=== PATIENT | female | born 1995 | race African-American/Black ===

== ENCOUNTER → 2017-01-07 | Outpatient (CLI) | payer OTHER ==
--- NOTE | 2017-01-09 06:21 | SLEEPCENT ---
DATE OF PROCEDURE: 01/07/2017 ORDERED BY: JAMISON Liu Nocturnal polysomnography was performed for evaluation of sleep apnea syndrome symptoms in this patient with complaints of difficulty at sleep onset and sleep maintenance. 7 hours and 32 minutes of data were reviewed. There were 282 minutes of sleep identified. Sleep latency was quite delayed at 145 minutes. Rapid eye movement (REM) was mildly delayed at 132 minutes. Sleep architecture once established was fair with some fragmentation particularly early in the study, but 3 REM periods were appreciated. Overall sleep efficiency was reduced at 63.3%. The patient's EKG showed a sinus rhythm with an average heart rate of 66 beats per minute. EEG showed normal waveforms for awake and sleep. There were no respiratory events of 10 seconds in duration or greater resulting in arousal. Snoring was noted of some significance, particularly early in the study and respiratory related arousals occurred 4.7 times per hour. There was some scattered limb activity noted. Limb movement arousals were few at 1.5 per hour. Oxygen saturations were normal. IMPRESSION: 1. Normal nocturnal polysomnography with snoring. 2. Possible delayed sleep phase syndrome. RECOMMENDATION: Interventions to optimize upper airway tone may address the snoring problem. Attention to sleep hygiene may be needed to address the issue of delayed sleep phase.
== END ==
LOC: M SLEEP 20:03
PROVIDERS: ATTEND Nurse Practitioner Adult Health
DX: G47.30 Sleep apnea, unspecified (principal)

== ENCOUNTER 2017-03-13 06:33 | Emergency (ER) | payer OTHER ==
[~2017-03-13] VITALS: Ht 160 cm; Wt 64.9 kg
[2017-03-13] MEDS ORDERED: [UNRECOGNIZED DRUG - CODE] (06:46)
[2017-03-13] MEDS ORDERED: ALBU83IN INH ×2 (06:47→08:29)
[2017-03-13] MEDS ORDERED: PRENCHW PO (06:47)
[2017-03-13] MEDS ORDERED: IPRATROPIUM 0.5MG/ALBUTEROL 2.5MG INH SOL UD 3ML (DUONEB)(J7620) NEB ONE (07:00)
[2017-03-13 07:28] LABS: BASO % 0.1 % (0.0-1.0); EOS # 0.3 K/mm3 (0.0-0.50); EOS % 1.7 % (0.0-3.0); LARGE UNSTAINED CELL # 0.2 K/mm3 (0.0-0.4); LARGE UNSTAINED CELL % 0.9 % (0.0-4.0); LYMPH # 1.3 K/mm3 (1.5-6.5); LYMPH % 6.3 % (24.0-44.0); MEAN CORPUSCULAR HEMOGLOBIN 26.7 pg (27.0-33.0); MEAN CORPUSCULAR HGB CONC 32.7 g/dl (32.0-36.5); MEAN CORPUSCULAR VOLUME 81.6 fl (80.0-96.0); MONO # 0.7 K/mm3 (0.0-0.8); NEUTROPHILS # 15.5 K/mm3 (1.8-7.7); NEUTROPHILS % 87.1 % (36.0-66.0); PLATELET COUNT, AUTOMATED 224 k/mm3 (150-450); RED CELL DISTRIBUTION WIDTH 13.4 % (11.5-14.5); WHITE BLOOD COUNT 17.8 K/mm3 (4.0-10.0)
[2017-03-13 08:02] LABS: ALBUMIN 2.9 GM/DL (3.2-5.2); ALBUMIN/GLOBULIN RATIO 0.71 (1.00-1.93); ALKALINE PHOSPHATASE 63 U/L (45-117); ALT/SGPT 15 U/L (12-78); ANION GAP 11 MEQ/L (8-16); AST/SGOT 9 U/L (15-37); BILIRUBIN,DIRECT 0.1 MG/DL (0.0-0.2); BILIRUBIN,TOTAL 0.9 MG/DL (0.2-1.0); BLOOD UREA NITROGEN 6 MG/DL (7-18); CALCIUM LEVEL 8.9 MG/DL (8.5-10.1); CARBON DIOXIDE LEVEL 18 MEQ/L (21-32); CHLORIDE LEVEL 108 MEQ/L (98-107); CREATININE FOR GFR 0.85 MG/DL (0.55-1.02); GLUCOSE, FASTING 167 MG/DL (70-105); MAGNESIUM LEVEL 1.7 MG/DL (1.8-2.4); POTASSIUM SERUM 3.8 MEQ/L (3.5-5.1); SODIUM LEVEL 137 MEQ/L (136-145)
--- NOTE | 2017-03-13 08:26 | REP ---
Chest x-ray: Single PA view. History: Cough. 22 weeks gestation. Findings: The lungs are exposed at a somewhat low level of inspiration. Cardiac silhouette is prominent as a result. Pulmonary vasculature is not increased. No infiltrate is seen. Lung trimble are clear. No pleural effusion or pulmonary edema pattern seen. No bony abnormality is noted. Impression: No acute disease. Signed by Bhargav Duran MD 03/13/2017 11:21 A
[2017-03-13 08:28] VITALS: BP 114/64
[2017-03-13] MEDS ORDERED: ALBU17IN INH (08:29)
[2017-03-13] MEDS ORDERED: ZITHTAB PO (08:29)
== END 2017-03-13 08:33 | disposition home or self-care (01) ==
LOC: M ED 07:21
DX: J45.901 Unspecified asthma with (acute) exacerbation (principal); J20.9 Acute bronchitis, unspecified

== ENCOUNTER 2017-05-27 14:02 | Emergency (ER) | payer OTHER ==
[~2017-05-27] VITALS: Ht 160 cm; Wt 70.0 kg
[~2017-05-27 14:02] MED LIST: ALBU17IN INH; ALBU83IN INH; PRENCHW PO; ZITHTAB PO; [UNRECOGNIZED DRUG - CODE]
[2017-05-27] MEDS ORDERED: NS 1,000 ML IV SCH (14:59)
[2017-05-27 15:52] LABS: CONTROL LINE HCG INT CTR LINE PRESENT
[2017-05-27 16:01] LABS: ALBUMIN 2.8 GM/DL (3.2-5.2); ALBUMIN/GLOBULIN RATIO 0.72 (1.00-1.93); ALKALINE PHOSPHATASE 144 U/L (45-117); ALT/SGPT 11 U/L (12-78); ANION GAP 8 MEQ/L (8-16); AST/SGOT 11 U/L (15-37); BILIRUBIN,DIRECT 0.1 MG/DL (0.0-0.2); BILIRUBIN,TOTAL 0.8 MG/DL (0.2-1.0); BLOOD UREA NITROGEN 5 MG/DL (7-18); CALCIUM LEVEL 8.7 MG/DL (8.5-10.1); CARBON DIOXIDE LEVEL 20 MEQ/L (21-32); CHLORIDE LEVEL 108 MEQ/L (98-107); CREATININE FOR GFR 0.51 MG/DL (0.55-1.02); GLUCOSE, FASTING 70 MG/DL (70-105); POTASSIUM SERUM 4.3 MEQ/L (3.5-5.1); SODIUM LEVEL 136 MEQ/L (136-145); TOTAL PROTEIN 6.7 GM/DL (6.4-8.2)
[2017-05-27 16:04] LABS: METHADONE URINE NEGATIVE (NEGATIVE)
--- NOTE | 2017-05-27 16:09 | REP ---
Clinical: Pain and swelling . Technique: Issa scale and color Doppler evaluation using linear high frequency transducer. Findings: Ultrasound examination of the right and left lower extremity deep venous structures from the common femoral vein to the popliteal vein demonstrates normal compressibility flow and wave patterns in response to respiration and augmentation. There is no evidence for deep venous thrombosis. Impression: No evidence for deep venous thrombosis of the right or left lower extremities . Signed by Manuel Florence MD 05/27/2017 04:01 P
[2017-05-27 16:16] LABS: FREE T4 1.03 NG/DL (0.78-1.33)
--- NOTE | 2017-05-27 16:21 | REP ---
Clinical: Maternal chest and abdominal pain for well being. Comparison: None . Findings: Examination demonstrates a single live intrauterine in cephalic presentation. motion is identified by technologist. Placenta is noted anteriorly and grade II without evidence for placenta previa or abruption. Amniotic fluid volume is normal. Cervix measures 2.9 cm in length and appears closed. No evidence for nuchal cord. Gestational age by LMP 32 weeks 5 days with MARISSA 07/17/2017 . Gestational age by current measurements 32 weeks 0 days with MARISSA 07/22/2017 . FHR equals 149 beats per minute. Amniotic fluid index equals 10.5 cm (8.4 - 24.4). Estimated weight 1859 grams ( 28th percentile). Anatomical assessment demonstrates normal structures including cranium, choroid plexus, cavum, cerebellum/posterior fossa, facial features, lungs, four-chamber heart/ventricular outflow tracts, diaphragm, stomach, cord insertion/three-vessel cord, kidneys/bladder, and spine. Impression: Single live advanced gestation in cephalic presentation demonstrating appropriate interval growth. No gross abnormalities are identified. Signed by Manuel Florence MD 05/27/2017 04:13 P
--- NOTE | 2017-05-27 16:37 | REP ---
Clinical: Chest pain. Technique: PA and lateral. Comparison: 03/13/2017. Findings: Mediastinum and cardiac silhouette are stable. Prominence of the cardiac silhouette is again noted. Lung trimble are clear without focal consolidation, effusion, or pneumothorax. Skeletal structures are intact. Impression: Cardiac silhouette stable. No focal consolidation. Signed by Manuel Florence MD 05/27/2017 04:28 P
[2017-05-27 16:53] LABS: INR 1.03
[2017-05-27 17:24] LABS: BASO % 0.5 % (0.0-1.0); EOS # 0.3 K/mm3 (0.0-0.50); LARGE UNSTAINED CELL # 0.3 K/mm3 (0.0-0.4); LARGE UNSTAINED CELL % 2.6 % (0.0-4.0); LYMPH # 1.9 K/mm3 (1.5-6.5); LYMPH % 20.1 % (24.0-44.0); MEAN CORPUSCULAR HEMOGLOBIN 26.7 pg (27.0-33.0); MEAN CORPUSCULAR HGB CONC 32.8 g/dl (32.0-36.5); MEAN CORPUSCULAR VOLUME 81.2 fl (80.0-96.0); MONO # 0.7 K/mm3 (0.0-0.8); MONO % 7.8 % (0.0-5.0); NEUTROPHILS # 6.3 K/mm3 (1.8-7.7); NEUTROPHILS % 66.1 % (36.0-66.0); PLATELET COUNT, AUTOMATED 202 k/mm3 (150-450); RED CELL DISTRIBUTION WIDTH 13.6 % (11.5-14.5); WHITE BLOOD COUNT 9.6 K/mm3 (4.0-10.0)
[2017-05-27 17:44] LABS: ERYTHROCYTE SEDIMENTATION RATE 48 mm/hr (0-20)
[2017-05-27] MEDS ORDERED: ISOVUE-370 76% 100ML VIAL (Q9967) As Ordered ONE (17:53)
--- NOTE | 2017-05-27 19:03 | REP ---
CT pulmonary angiogram: With IV contrast: History: Question pulmonary embolus. Tachycardia. 33 weeks gestation. Comparison studies: Today's chest x-ray. Contrast dose: 75 mL of Isovue [address] technique: Helical scanning is acquired and overlapping 1.5 mm and contiguous 3 mm axial images are reformatted. In addition, a 3-D work station is deployed to generate thick slab maximum intensity projection images in sagittal and coronal imaging projections. CT pulmonary angiographic findings: There is good opacification of the pulmonary arterial tree. There is no CT evidence of pulmonary embolism. No pleural or pericardial effusion is seen. Lung trimble are clear. No infiltrate is noted. There is some plate-like atelectasis in the left lower lobe. No hilar or mediastinal mass or adenopathy is seen. Maximal intensity projection images show no evidence of filling defect or vessel cutoff to suggest a pulmonary embolus. The thoracic aorta enhances homogeneously and is normal in caliber and course. Bone window settings show no bony destructive lesion. The visualized upper abdominal structures are unremarkable. Impression: Negative CT pulmonary angiogram. No CT evidence of pulmonary embolism. Linear plate-like atelectasis left lower lobe. Signed by Bhargav Duran MD 05/27/2017 08:28 P
[2017-05-27 19:07] VITALS: BP 106/61
--- NOTE | 2017-05-29 07:16 | ECGEPIP ---
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
== END 2017-05-27 19:08 | disposition home or self-care (01) ==
LOC: M ED 14:02 → EDBD 14:02 → M ED 19:08
DX: O26.893 Other specified pregnancy related conditions, third trimester (principal); R07.89 Other chest pain; Z3A.33 33 weeks gestation of pregnancy
CPT/HCPCS: 36415; 71020; 71275; 76811; 76820; 80048; 80076; 80307; 82550; 82553; 83690; 83880; 84439; 84443; 84703; 85025; 85610; 85652; 85730; 86140; 93005; 93041; 93970; 94760; 99285; Q9967

== ENCOUNTER 2017-06-22 22:07 | Outpatient (CLI) | payer OTHER ==
[~2017-06-22] VITALS: Ht 160 cm; Wt 69.0 kg
[2017-06-22 22:25] VITALS: BP 133/58
== END 2017-06-22 22:54 | disposition home or self-care (01) ==
LOC: M LDO 22:07
PROVIDERS: ATTEND Obstetrics & Gynecology
DX: O47.1 False labor at or after 37 completed weeks of gestation (principal); Z3A.37 37 weeks gestation of pregnancy

== ENCOUNTER 2017-06-27 07:52 | Outpatient (CLI) | payer OTHER ==
[~2017-06-27] VITALS: Ht 160 cm; Wt 56.0 kg
--- NOTE | 2017-06-28 13:54 | HPE ---
DATE OF ADMISSION: 06/27/2017 This lady is a 21-year-old 2, para 1, last menstrual period (LMP) 09/30/2016, estimated date of confinement (EDC) June looks like 2016 at 38 weeks of gestation, comes in thinking she is in labor. PAST HISTORY: In July 2016, 39-week spontaneous vaginal delivery female, 6 pounds, 11 ounces. She had elevated blood pressure at . Her risk factors are history of preeclampsia. She has a short interval gestation. She suffers from migraines and has asthma and seems to be aggressive with her albuterol and her ProAir. LABORATORY DATA: B+, HIV negative, hepatitis negative, RPR negative, rubella immune. Varicella immune. Urine positive. Gonorrhea and chlamydia are negative. One-hour glucose was 69. On presentation, she does not appear to be in any acute distress. She does not appear to be in labor. She has a category 1 strip. On evaluation, there is no discharge. No loss of fluid. Vertex, posterior -3, closed to almost maybe a centimeter or two and contractions are irregular and anywhere from 2-9 minutes of mild to moderate intensity. Her blood pressure is 123/65. We evaluated her for over an hour and determined that she was not in active labor. No cervical change. The patient was not happy that we are letting her go home because she really wants to have the baby. She does not have any migraines and at the present time, she is breathing well, does not require any assisted ventilation. She did not ask for nor would she receive ProAir or albuterol. She was told that if she has a problem with her respiratory tract that she is to be evaluated by pulmonology and she already had a consultation with pulmonology. The rest of the examination was unremarkable. She is normocephalic, atraumatic. Neck: Full range of motion. Pupils are equal and reactive to light. She has a category 1 strip. Distal pulses are symmetric. No evidence of deep vein thrombosis (DVT), pulmonary embolism (PE) or superficial phlebitis. Lungs are clear. No wheezes or rhonchi. Back: No costovertebral angle (CVA) tenderness. Appropriate symphysis fundus height, nontender uterus, four quadrant bowel sounds are noted. She has no rashes, lesions or pruritus. No myalgia. No complaints of cough, wheezes, shortness of breath or dyspnea on exertion. No chest pain. She is not bleeding. She is neurologically complete. No incontinence, urgency, or frequency. No nausea, vomiting, diarrhea or constipation. She has no diabetic issues. Her main symptomatology is asthma. She has no gynecologic issues. PAST MEDICAL HISTORY: Asthma. PAST SURGICAL HISTORY: She has no surgical history. FAMILY HISTORY: Noncontributory. SOCIAL HISTORY: She does not smoke, drink or abuse drugs. She is . There is no domestic violence. In summary, we have a 38+ week of gestation with some Don Dugan contractions. No change in her cervical dilatation. She was discharged undelivered. She is to return at any time if she feels there is a change in the character of her contractions. Precautions were given and she has a followup appointment in the office next week.
== END 2017-06-27 09:45 | disposition home or self-care (01) ==
LOC: M LDO 07:52
PROVIDERS: ATTEND Student in an Organized Health Care Education/Training Program
DX: O62.0 Primary inadequate contractions (principal); O99.353 Diseases of the nervous system complicating pregnancy, third trimester; G43.909 Migraine, unspecified, not intractable, without status migrainosus; O99.513 Diseases of the respiratory system complicating pregnancy, third trimester; J45.909 Unspecified asthma, uncomplicated; Z3A.38 38 weeks gestation of pregnancy; Z79.899 Other long term (current) drug therapy

== ENCOUNTER 2017-07-07 18:06 | Inpatient (IN) | payer OTHER ==
[~2017-07-07] VITALS: Ht 160 cm; Wt 70.0 kg
[2017-07-07 18:21] VITALS: BP 123/68
--- NOTE | 2017-07-07 19:29 | IPNPDOC ---
Text Note Date of Service The patient was seen on 07/07/17. NOTE [id number] @ 1922 21 yo @ 38+4 presented to L&D with c/o CTXs. Denies DFM, LOF and VB. She states she is unsure of when her MARISSA is b/c Dr. Joe changed it back to . There is nothing charted. Her MARISSA was changed to Jun based of a 9+4 wk US on with US pictures and measurements on the chart. S: Reports she is having CTXs every 2 min that are uncomfortable. She is talking through her CTXs without difficulty O: VS- WNL, afebrile FHR- 140, moderate variability, + accels, late decels noted- resolved when turned to her side CTX- Q 1-3 min, lasting <90 sec SVE- 3/80/-2, soft/mid/vtx A: 21 yo @ 38+4 with CTX, CAT II FHR tracing P: consulted with Dr. Moore-desired further monitoring Dr. Moore assumed care of patient with report VS,Kimberlye, I+O VSDrew, I+O Vital Signs Date Time Temp Pulse Resp B/P (MAP) Pulse Ox O2 Delivery O2 Flow Rate FiO2 07/07/17 18:21 98.2 97 20 123/68 (86) PILY DUNCAN CNM Jul 07, 2017 19:29
[2017-07-07] MEDS ORDERED: LR 1,000 ML IV SCH (19:59)
[2017-07-07] MEDS ORDERED: LACTATED RINGER'S 1000 ML IV ONE (20:00)
[2017-07-07 20:25] LABS: MEAN CORPUSCULAR HEMOGLOBIN 25.4 pg (27.0-33.0); MEAN CORPUSCULAR HGB CONC 33.2 g/dl (32.0-36.5); MEAN CORPUSCULAR VOLUME 76.6 fl (80.0-96.0); RED CELL DISTRIBUTION WIDTH 14.6 % (11.5-14.5); WHITE BLOOD COUNT 9.1 K/mm3 (4.0-10.0)
[2017-07-07] MEDS ORDERED: FENTANYL 2MCG/ML ROPIVACAINE 0.2% IN 0.9% NACL 200ML IVBAG As Ordered ONE (21:03)
--- NOTE | 2017-07-07 21:46 | HPE ---
DATE OF ADMISSION: 07/07/2017 This 21-year-old 2, para 1, LMP 09/30/2016, EDC 07/17/2017 at 38-4/7 in active labor after membrane stripping in the office this afternoon, 4 cm, bulging membranes, 100% effaced, -2 station. Category one strip. PAST HISTORY: July 2016 at 39 weeks, spontaneous vaginal delivery 6 pounds 1 ounce female. She had a history of preeclampsia (pre-E). Her risk factors today are short interval gestation, migraines, asthma and history of (pre-E). Labs are B+, HIV negative, hepatitis negative, RPR negative, rubella immune. Varicella immune. Pap not done. She is less than 21 years of age. Urine was mixed iliana. Gonorrhea and chlamydia negative. 1-hour glucose 68. GBS negative. On examination, distressed female. Symphysis fundus height is 38, vertex category one, 3-4 stretchy cervix, bulging membranes, -2 station with some show. Her temperature is 98.2, her respirations are 20. Her pulse is 97 and her blood pressure is 123/68. Urine is 1.010, pH 7, trace of protein. The rest of the examination is unremarkable. She is normocephalic, atraumatic. Neck full range of motion. Pupils equal and reactive to light. Distal pulses are symmetric. No evidence of DVT, PE or superficial phlebitis. Chest is clear bilaterally to the bases. No wheezes or rhonchi. No CVA tenderness. Four quadrant bowel sounds are appropriate. Symphysis fundus height. Nontender and category one strip. No rashes, lesions or pruritus. No arthralgia or myalgia. No complaints of cough, wheezes, shortness of breath or dyspnea on exertion. No chest pain. No bleeding. Normocephalic. No neurologic deficits. No incontinence, urgency, or frequency. No nausea, vomiting, diarrhea or constipation. No diabetic issues. 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 Past surgical history unremarkable. Family history noncontributory. She does not smoke, drink or abuse drugs. She is . There is no domestic violence. In summary we have a 38-4/7 weeks of gestation in active labor. Plan of management is hydrate, epidural, anticipate spontaneous delivery.
[2017-07-07] MEDS ORDERED: EPIDURAL COMMENT XX SCH (22:15)
[2017-07-07] MEDS ORDERED: EPIDURAL/PCA KEYS XX PRN (22:15)
[2017-07-07] MEDS ORDERED: FENTANYL/ROPIVACAINE/NACL BAG 200 ML EPIDURAL SCH (22:15)
[2017-07-07] MEDS ORDERED: ePHEDrine SULFATE 25 MG/5 ML(5MG/ML) SYRINGE IV PRN (22:15)
[2017-07-07] MEDS ORDERED: ONDANSETRON 4MG/2ML VIAL (J2405) IV PRN (22:15)
[2017-07-07] MEDS ORDERED: REFRIGERATOR IV KEYS XX PRN (22:15)
[2017-07-07] MEDS ORDERED: NALOXONE INJ 0.4 MG/1 ML VIAL (J2310) IV PRN (22:15)
[2017-07-07] MEDS ORDERED: LACTATED RINGER'S 1000 ML IV PRN (22:15)
[2017-07-07] MEDS ORDERED: diphenhydrAMINE INJ 50MG/ML VIAL (J1200) IV PRN (22:15)
[2017-07-07] MEDS ORDERED: OXYTOCIN DRIP 30 UNITS in APPROPRIATE DILUENT 1 EA IV SCH (23:15)
[2017-07-08] MEDS ORDERED: MEASLES,MUMPS,RUBELLA VACCINE INJ (MMR-II) (90707) SC SCH (02:15)
[2017-07-08] MEDS ORDERED: DOCUSATE SODIUM 100 MG CAP PO PRN (02:15)
[2017-07-08] MEDS ORDERED: RHOGAM 300 MCG (1500 IU) INJ (J2790) IM SCH (02:15)
[2017-07-08] MEDS ORDERED: DIBUCAINE 1% OINTMENT 30GM TOP PRN (02:15)
[2017-07-08] MEDS ORDERED: METHYLERGONOVINE MALEATE 0.2 MG TAB PO PRN (02:15)
[2017-07-08] MEDS ORDERED: MOM 30ML SUSPENSION UDC PO PRN (02:15)
[2017-07-08 02:25] LABS: CORD GAS ABE A -3.4; CORD GAS HCO3 A 21.3 MEQ/L; CORD GAS O2 SAT A 85.8 %; CORD GAS PCO2 A 37.7 mmHg; CORD GAS PH A 7.37 UNITS; CORD GAS PO2 A 39.8 mmHg; CORD GAS SBC A 21.4 MEQ/L; CORD GAS TCO2 A 22.5 MEQ/L
[2017-07-08 02:29] LABS: CORD GAS ABE V -3.2; CORD GAS HCO3 V 22.2 MEQ/L; CORD GAS O2 SAT V 82.6 %; CORD GAS PCO2 V 40.9 mmHg; CORD GAS PH V 7.352 UNITS; CORD GAS PO2 V 35.6 mmHg; CORD GAS SBC V 21.5 MEQ/L; CORD GAS TCO2 V 23.4 MEQ/L
[2017-07-08] MEDS ORDERED: OXYTOCIN INJ 10 UNITS/ML VIAL (J2590) IV ONE (05:00)
[2017-07-08 05:45] VITALS: BP 134/79
[2017-07-08] MEDS: IBUPROFEN 800 MG TAB PO PRN ×2 (07:19→20:02)
[2017-07-08] MEDS: PRENATAL VITAMINS CHEWABLE TABLET PO SCH (08:28)
--- NOTE | 2017-07-08 11:34 | DN ---
DATE: 07/08/2017 This is a 2, para 1, came in in active labor after at having a membrane sweep in the office. She had an epidural in place and artificial rupture of membranes (AROM) ARM draining clear liquor, delivered over an intact perineum a live male 6 pounds 7 ounces, 2924 grams. scores of 7 and 9, at 1 and 5 minutes, respectively. Placenta delivered spontaneously thereafter, membranes and tissues complete, three-vessels. Uterus contracted well down under Pitocin. Examination of the perineum, the vaginal wiggins, anterior, posterior, and laterals, and sphincter were intact. Patient and baby tolerating procedure well.
[2017-07-08] MEDS: ACETAMINOPHEN 500 MG TAB PO PRN (12:38)
[2017-07-08 17:19] VITALS: BP 113/55
[2017-07-09 06:04] VITALS: BP 110/63
[2017-07-09 07:07] LABS: MEAN CORPUSCULAR HEMOGLOBIN 25.2 pg (27.0-33.0); MEAN CORPUSCULAR HGB CONC 32.4 g/dl (32.0-36.5); MEAN CORPUSCULAR VOLUME 77.9 fl (80.0-96.0); RED CELL DISTRIBUTION WIDTH 14.5 % (11.5-14.5); WHITE BLOOD COUNT 10.4 K/mm3 (4.0-10.0)
[2017-07-09] MEDS: PRENATAL VITAMINS CHEWABLE TABLET PO SCH (08:49)
[2017-07-09] MEDS: IBUPROFEN 800 MG TAB PO PRN ×2 (08:56→18:19)
[2017-07-09 18:17] VITALS: BP 138/88
[2017-07-09] MEDS: ACETAMINOPHEN 500 MG TAB PO PRN (22:24)
[2017-07-10] MEDS: IBUPROFEN 800 MG TAB PO PRN (05:09)
[2017-07-10 06:39] VITALS: BP 145/92
[2017-07-10] MEDS: PRENATAL VITAMINS CHEWABLE TABLET PO SCH (08:04)
[2017-07-10] MEDS: ACETAMINOPHEN 500 MG TAB PO PRN (08:05)
[2017-07-10] MEDS ORDERED: ACET50TA PO (11:01)
[2017-07-10] MEDS ORDERED: IBUP-1114 PO (11:01)
[2017-07-10] MEDS ORDERED: MOM30SS PO (11:01)
[2017-07-10] MEDS ORDERED: COLA100C5 PO (11:01)
[2017-07-10] MEDS ORDERED: NUPE1OIN2 TOP (11:01)
== END 2017-07-10 11:50 | disposition home or self-care (01) | DRG 775 ==
LOC: M LDO 18:06 → M LDI 19:51 → M OBS 07-08 04:11
PROVIDERS: ADMIT Obstetrics & Gynecology; ATTEND Obstetrics & Gynecology
PROC: 10E0XZZ Delivery of Products of Conception, External Approach (ICD-10-PCS; principal; 2017-07-08)
PROC: 10907ZC Drainage of Amniotic Fluid, Therapeutic from Products of Conception, Via Natural or Artificial Opening (ICD-10-PCS; 2017-07-08)
DX: O99.52 Diseases of the respiratory system complicating childbirth (principal); J45.909 Unspecified asthma, uncomplicated; Z3A.38 38 weeks gestation of pregnancy; Z37.0 Single live birth

== ENCOUNTER → 2017-09-22 | Outpatient (CLI) | payer OTHER ==
[~2017-09-22] MED LIST changes: +ACET50TA PO; +COLA100C5 PO; +IBUP-1114 PO; +METHACHOLINE KIT (J7674) INH ONE; +MOM30SS PO; +NUPE1OIN2 TOP
--- NOTE | 2017-09-22 13:30 | PFTRPT ---
Tech: Eddi GAMEZ RRT Age: 22 Sex: Female Race: Black Height: 63.25 Inches Weight: 137.00 Lbs BSA: 1.65 Diagnosis: R06.02 METHACHOLINE CHALLENGE REPORT: ORDERING PROVIDER: Derek Delgado MD DATE OF SERVICE: 09/22/17 INTERPRETATION: The study was of excellent technical quality. Under protocol, methacholine was administered. At a dose of 2.5 mg (13.875 CDUs), a 29% decline in the FEV1 was noted. The PC20 of 0.64 is significant. Flow rates returned to baseline post bronchodilator administration. IMPRESSION: Positive methacholine challenge study. MTDD
== END ==
LOC: M CARPUL 12:29
PROVIDERS: ATTEND Internal Medicine Pulmonary Disease
DX: R06.02 Shortness of breath (principal)
CPT/HCPCS: 94070; J7674